=== PATIENT | male | born 1960 | race Caucasian/White ===

== ENCOUNTER 2024-12-28 21:05 | Emergency (ER) | payer OTHER ==
[~2024-12-28] VITALS: Ht 167.6 cm; Wt 85.7 kg
--- NOTE | 2024-12-28 21:16 | ERN ---
ED Note History of Present Illness Stated Complaint: RT EYE REDNESS Chief Complaint: Eye Problems Time Seen by MD: 21:07 Dictation: PATIENT IS A 64-YEAR-OLD MALE COMING IN TODAY WITH COMPLAINTS OF RUBBING HIS RIGHT EYE WHEN HE NOTICED THAT THERE WAS SWELLING TO THE CONJUNCTIVA. HE STATES IT WAS ONSET THIS EARLIER THIS AFTERNOON HE DENIES ANY VISION CHANGES, NO CONTACT LENSES HE DOES WEAR CORRECTIVE GLASSES. NO HEADACHE. Allergies: Coded Allergies: No Known Allergies (Unverified Allergy, Unknown, 07/26/23) Past Medical History Past Medical History: Asthma, Hypertension Surgical History: None RN Note Reviewed/Agreed w/PFSH: Yes Review of System Dictation CONSTITUTIONAL: NEGATIVE EXCEPT FOR HPI HEAD/FACE: NEGATIVE EXCEPT FOR HPI EENT: NEGATIVE EXCEPT FOR HPI SWELLING TO RIGHT EYE CONJUNCTIVA RESPIRATORY: NEGATIVE EXCEPT FOR HPI GASTROINTESTINAL/ABDOMINAL: NEGATIVE EXCEPT FOR HPI GENITOURINARY: NEGATIVE EXCEPT FOR HPI MUSCULOSKELETAL: NEGATIVE EXCEPT FOR HPI INTEGUMENTARY: NEGATIVE EXCEPT FOR HPI NEUROLOGICAL/PSYCH: NEGATIVE EXCEPT FOR HPI HEMATOLOGIC/LYMPHATIC: NEGATIVE EXCEPT FOR HPI ALL SYSTEMS NEGATIVE, EXCEPT NOTED ABOVE. 13 POINT REVIEW OF SYSTEMS ASSESSED AND ALL NEGATIVE EXCEPT FOR ABOVE. Initial Vital Sign VS Vital Signs Date Time Temp Pulse Resp B/P (MAP) Pulse Ox O2 Delivery O2 Flow Rate FiO2 12/28/24 21:06 97.9 81 20 149/71 99 Room Air 12/28/24 21:23 0 21 Physical Exam Dictation VITAL SIGNS REVIEWED GENERAL APPEARANCE: ALERT, ORIENTED X 3, NO ACUTE DISTRESS, WELL DEVELOPED, NOURISHED. HEAD AND FACE: NON-TRAUMATIC. EYES: PERRL, EOMS INTACT TO BOTH EYES. RIGHT CONJUNCTIVAL EDEMA NOTED NO SUBCONJUNCTIVAL HEMORRHAGE CONJUNCTIVA MILDLY INJECTED. EARS: PINNAS INTACT AND NO SIGNS OF TRAUMA OR ERYTHEMA EAR CANALS CLEAR AND NO DISCHARGE TM NO ERYTHEMA NOSE: NO DISCHARGE, NO BLEEDING. OROPHARYNX: MOUTH NORMAL, TONGUE PINK, PHARYNX CLEAR,NO ERYTHEMA, TONSILS NO EXUDATES, NO ABSCESSES NOTED, MUCOUS MEMBRANE MOIST NECK: SUPPLE, NON-TENDER, NO THYROMEGALY, NO MASSES, NO JVD, NO BRUITS BREAST:DEFERRED CHEST:NO TENDERNESS, NO CREPITUS, NO PARADOXICAL MOVEMENT, NO RETRACTIONS LUNGS:CLEAR, WELL-VENTILATED, SYMMETRIC, NO RALES, NO WHEEZING, NO RHONCHI, NO STRIDOR, GOOD BREATH SOUNDS BILATERALLY HEART: REGULAR RATE, REGULAR RHYTHM, NO MURMUR, NO GALLOPS VASCULAR: NO PERIPHERAL EDEMA, ABDOMEN: SOFT, POSITIVE BOWEL SOUNDS, NONDISTENDED, NO GUARDING, NONTENDER, NO REBOUND, NO MASSES NO HEPATOMEGALY, NO SPLENOMEGALY, NO DUNBAR'S SIGN, NO HERNIAS. RECTAL: DEFERRED GENITAL: DEFERRED NEUROLOGICAL: NORMAL SPEECH, MOTOR FUNCTION INTACT, SENSORY FUNCTION INTACT MUSCULOSKELETAL: NECK NONTENDER, FULL RANGE OF MOTION, BACK NONTENDER, FULL RANGE OF MOTION, EXTREMITIES: NONTENDER, FULL RANGE OF MOTION SKIN: COLOR PINK, DRY, NO TURGOR, NO RASH, NO LACERATIONS, NO ABRASIONS, NO CONTUSIONS. LYMPHATIC: DEFERRED Results (Laboratory/Radiology) Labs Reviewed?: Yes ED Course ED Course Orders Procedure Category Date Status Time Visual Acuity Test CPOE 12/28/24 Transmitted (Er) 21:13 Tetracaine Hcl PHA 12/28/24 In Process (Pontocaine 0.5% 21:30 Fluorescein Sodium PHA 12/28/24 In Process (Mwlls-E-Vxbmr At) 21:30 Current Medications Medications (Trade) Dose Ordered Sig/Melissa Route PRN Reason Start Time Stop Time Status Last Admin Dose Admin Fluorescein Sodium (Wizri-T-Xfkmg At) 1 strip ONCE ONCE OP 12/28/24 21:30 12/28/24 21:31 Tetracaine HCl (Pontocaine 0.5% Oph Soln) 2 drop ONCE ONCE OP 12/28/24 21:30 12/28/24 21:31 Vital Signs Date Time Temp Pulse Resp B/P (MAP) Pulse Ox O2 Delivery O2 Flow Rate FiO2 12/28/24 21:23 97.9 81 20 149/71 99 Room Air* 0 21 12/28/24 21:06 97.9 81 20 149/71 99 Room Air 2119/VISUAL ACUITY LEFT EYE 20/20 RIGHT EYE 20/20 BILATERAL EYES 20/15 CORRECTED Medical Decision Making MDM MEDICAL DECISION-MAKING BASED ON VISUAL ACUITY EXAM AND I EXAM WITH TETRACAINE. VISUAL ACUITY IS INTACT CORRECTED NO FOREIGN BODY LACERATION OR ABRASION ON EYE EXAM PATIENT DISCHARGED HOME TO OBTAIN PATADAY EOLV-CBC-WEALKTN SEE HIS PRIMARY CARE DOCTOR TOMORROW Procedure Procedure Dictation: 2124/PROCEDURE EXPLAINED TO PATIENT HE AGREED TO PROCEED TETRACAINE TWO DROPS TO RIGHT EYE HE FLUORESCEIN STAIN APPLIED RIGHT EYE WAS EXAMINED WITH BLACK LAMP TO INCLUDE EVERSION OF UPPER LID NO ABRASIONS/FOREIGN BODY OR ULCERATION NOTED CONJUNCTIVA IS INJECTED PATIENT TOLERATED WELL DX & DISP Disposition: Discharge Departure Impression: Primary Impression: Conjunctival edema of right eye Condition: Stable Additional Instructions: FOLLOW-UP WITH PRIMARY CARE PROVIDER IN 1 TO 2 DAYS. TAKE MEDICATIONS DIRECTED HERE IN THE EMERGENCY ROOM. OKAY TO CONTINUE HOME MEDICATIONS UNLESS OTHERWISE DISCUSSED DURING YOUR VISIT IN THE EMERGENCY ROOM TODAY. RETURN TO YOUR NEAREST EMERGENCY ROOM IF SYMPTOMS WORSEN OR IF THERE IS NO IMPROVEMENT. CALL 911 IF YOU NEED IMMEDIATE ASSISTANCE. TAKE TYLENOL OR MOTRIN [id number] NEEDED AND IF NO CONTRAINDICATIONS ARE PRESENT. INCREASE ORAL HYDRATION. A WOUND CULTURE OR URINE CULTURE WAS ORDERED HERE IN THE EMERGENCY ROOM DEPARTMENT PLEASE FOLLOW-UP WITH PRIMARY CARE PROVIDER AND ADVISE THEM TO GET REPEAT PORTS FROM OUR FACILITY. IF YOU HAD ANY VINCENT WRAP/SPLINTS THAT WERE APPLIED HERE, PLEASE DO NOT REMOVE THEM UNTIL YOU SEE YOUR PRIMARY CARE OR SPECIALTY. PATADAY EYEDROPS/LLUM-[id number], TWO DROPS TO I INITIALLY FOLLOW UP BY ONE DROP EVERY 12 HOURS FOR THE NEXT SEVEN DAYS. DO NOT RUB YOUR EYES AND SEE YOUR PRIMARY CARE DOCTOR IN 1-2 DAYS FOR MANAGEMENT. Referrals: MARCIAL SAUNDERS (PCP) Time of Disposition: 21:29 I have reviewed the case, and I agree with, Diagnosis and Plan ARPITA PRIETOP Dec 28, 2024 21:15
[2024-12-28 21:23] VITALS: BP 149/71; PULSE 81; RESP 20; TEMP 97.9; O2SAT 99
[2024-12-28] MEDS: FLUORESCEIN SODIUM 1 STRIP STRIP OP ONE (21:27)
[2024-12-28] MEDS: TETRACAINE HCL 0.5% 4 ML OPHTH SOLN OP ONE (21:27)
== END 2024-12-28 21:34 | disposition home or self-care (01) ==
LOC: EDH 21:05
DX: H11.421 Conjunctival edema, right eye (principal); J45.909 Unspecified asthma, uncomplicated; I10 Essential (primary) hypertension
CPT/HCPCS: 99283